=== PATIENT | female | born 1980 | race Caucasian/White ===

== ENCOUNTER → 2016-11-23 | Outpatient (CLI) | payer OTHER ==
[~2016-11-23] MED LIST: CHOL1000 PO; COEN1CAP37 PO; MISC1TAB PO; MULT-513 PO; OMEG10007 PO; SPIR25TA PO
[2016-11-23 14:23] LABS: BASO % 0.7 %; BASO ABS # 0.05 K/uL (0-0.2); COMPLETE YES; HEMATOCRIT 36.7 % (37-47); IG% 0.1 %; LYMPH ABS # 2.99 K/uL (1.2-3.4); MEAN CORPUSCULAR HEMOGLOBIN 31.1 pg (25-34); MEAN CORPUSCULAR HGB CONC 33.8 g/dl (32-36); MEAN PLATELET VOLUME 11.3 fL (7.4-10.4); MONO % 3.6 %; NEUT % 51.6 %; PLATELET COUNT 293 K/uL (130-400); RED BLOOD COUNT 3.99 M/uL (4.2-5.4); WHITE BLOOD COUNT 6.96 K/uL (4.8-10.8)
[2016-11-23 14:48] LABS: ALT/SGPT 17 U/L (12-78); BLOOD UREA NITROGEN 12 mg/dl (7-18); BUN/CREATININE RATIO 17.6 (10-20); CALCIUM 9.2 mg/dl (8.5-10.1); CARBON DIOXIDE 26 mmol/L (21-32); CHLORIDE 107 mmol/L (98-107); CHOLESTEROL 190 mg/dl (0-200); CREATININE 0.66 mg/dl (0.60-1.20); GLUCOSE 77 mg/dl (70-99); POTASSIUM 3.7 mmol/L (3.5-5.1); SODIUM 142 mmol/L (136-145)
[2016-11-23 14:57] LABS: ALB/GLOB RATIO 1.4 (0.9-2); ALKALINE PHOSPHATASE 97 U/L (45-117); AST/SGOT 12 U/L (15-37); CHOLESTEROL/HDL RATIO 2.2; HDL CHOLESTEROL 88 mg/dl; LDL CHOLESTEROL CALCULATED 94 mg/dl; TRIGLYCERIDES 39 mg/dl (0-150); VERY LOW DENSITY LIPOPROT CALC 8 mg/dl
== END | disposition home or self-care (01) ==
LOC: C.LAB1850 13:38
PROVIDERS: ATTEND Internal Medicine
DX: R20.2 Paresthesia of skin (principal); Z13.1 Encounter for screening for diabetes mellitus; Z13.220 Encounter for screening for lipoid disorders; Z13.29 Encounter for screening for other suspected endocrine disorder

== ENCOUNTER → 2017-01-03 | Outpatient (CLI) | payer OTHER ==
--- NOTE | 2017-01-03 21:19 | DIAGNOSTIC IMAGING REPORT ---
MRI OF THE LUMBAR SPINE WITHOUT IV CONTRAST CLINICAL HISTORY: Chronic low back pain. Bilateral lower extremity numbness and tingling. COMPARISON STUDY: No priors. TECHNIQUE: MRI of the lumbar spine is performed utilizing various T1 and T2-weighted sequences in the axial and sagittal planes. IV contrast was not administered for this examination. FINDINGS: Lumbar spine: Vertebral body height and alignment are maintained throughout the lumbar spine. There is straightening of the lumbar lordosis which appears slightly reversed centered at L3. The transverse and spinous processes appear intact. There is no evidence of spondylolysis. Marrow signal intensity is slightly heterogeneous. Hemangiomas are noted in the bodies of L1, L3, L4, and L5. No marrow edema is seen. Intervertebral discs: There is mild degenerative disc desiccation and loss of height at L5-S1. The remaining discs are normal in height and signal intensity. Spinal cord: The visualized spinal cord is normal in morphology and signal intensity. The conus medullaris terminates at the T12-L1 interspace. The nerve roots of the cauda equina are normal in morphology. L1-L2: Unremarkable. L2-L3: Unremarkable. L3-L4: Unremarkable. L4-L5: There is minimal disc bulge eccentric to the left. This may abut the transiting left L5 nerve root. The central canal and neural foramina are patent. Mild facet arthropathy is of no consequence. L5-S1: Mild facet arthropathy is of no consequence. The central canal and neural foramina are widely patent. A small synovial cyst projects posteriorly on the left and measures 5 mm. Sacrum: Partially imaged sacrum is normal in appearance. Soft tissues: The paraspinous soft tissues are normal in appearance. The partially imaged retroperitoneal structures are grossly normal, but incomplete assessed. IMPRESSION: 1. There is no disc herniation, central canal stenosis, or neural foraminal narrowing seen throughout the lumbar spine. 2. Mild degenerative change as above. 3. No destructive bony process is identified. Dictated: 01/03/2017 8:32 PM Transcribed: 01/03/2017 9:19 PM [email or web address]_[email or web address] Electronically signed by: Tony Varner M.D. 01/03/2017 9:20 PM Dictated Date/Time: 01/03/2017 8:32 PM
== END | disposition home or self-care (01) ==
LOC: C.MRI 19:30
PROVIDERS: ATTEND Internal Medicine
DX: R20.2 Paresthesia of skin (principal); M51.36 Other intervertebral disc degeneration, lumbar region; M54.16 Radiculopathy, lumbar region; R20.0 Anesthesia of skin

== ENCOUNTER 2017-04-12 16:30 | Emergency (ER) | payer BC, OTHER ==
[~2017-04-12] VITALS: Ht 170.2 cm; Wt 63.3 kg
[~2017-04-12 16:30] MED LIST changes: -CHOL1000 PO; -MULT-513 PO; -OMEG10007 PO; -SPIR25TA PO
[2017-04-12 16:32] VITALS: TEMP 36.6; Ht 170.2 cm; Wt 63.3 kg
[2017-04-12 17:01] VITALS: O2SAT 98
[2017-04-12] MEDS ORDERED: CHOL1000 PO (17:15)
[2017-04-12] MEDS ORDERED: SPIR25TA PO ×2 (17:15)
[2017-04-12 17:24] LABS: BASO % 0.6 %; BASO ABS # 0.04 K/uL (0-0.2); COMPLETE YES; EOS % 0.8 %; HEMATOCRIT 37.5 % (37-47); IG% 0.1 %; LYMPH % 32.6 %; LYMPH ABS # 2.32 K/uL (1.2-3.4); MEAN CELL VOLUME 90.6 fL (80-100); MEAN PLATELET VOLUME 10.5 fL (7.4-10.4); MONO % 7.3 %; NEUT % 58.6 %; PLATELET COUNT 300 K/uL (130-400); RED BLOOD COUNT 4.14 M/uL (4.2-5.4); WHITE BLOOD COUNT 7.11 K/uL (4.8-10.8)
--- NOTE | 2017-04-12 17:42 | DIAGNOSTIC IMAGING REPORT ---
CHEST ONE VIEW PORTABLE CLINICAL HISTORY: Sensation of foreign body in throat. COMPARISON STUDY: No previous studies for comparison. FINDINGS: The cardiac and mediastinal contours are normal. There is no evidence of focal pulmonary consolidation. There is no evidence of failure. No pleural effusions are visualized.[ There is no pneumothorax. There is no pneumomediastinum. IMPRESSION: No active disease in the chest. Electronically signed by: Alcon Ricci M.D. 04/12/2017 5:40 PM Dictated Date/Time: 04/12/2017 5:40 PM
[2017-04-12 17:44] LABS: BUN/CREATININE RATIO 25.3 (10-20); CALCIUM 8.7 mg/dl (8.5-10.1); CREATININE 0.71 mg/dl (0.60-1.20); POTASSIUM 3.6 mmol/L (3.5-5.1)
--- NOTE | 2017-04-12 19:11 | DIAGNOSTIC IMAGING REPORT ---
CT SOFT TISSUE NECK WITH CT DOSE: 223.64 mGy.cm CLINICAL HISTORY: Foreign body sensation in the back of the throat TECHNIQUE: Helical images were acquired during intravenous administration of 93 cc of Optiray 320. COMPARISON STUDY: None. FINDINGS: There are small biapical pulmonary blebs. No thyroid masses are visualized. No salivary gland masses are visualized. There are no pathologically enlarged cervical lymph nodes. No necrotic nodes are evident. There are no fluid collections suspicious for abscess. There is no evidence of airway compromise. No mucosal space masses are visualized The prevertebral soft tissues appear normal. No foreign bodies are visualized. If symptoms persist, ENT referral could be obtained in follow-up IMPRESSION: Normal study Electronically signed by: Alcon Ricci M.D. 04/12/2017 7:10 PM Dictated Date/Time: 04/12/2017 7:07 PM
[2017-04-12] MEDS ORDERED: OPTIRAY 320 IV PRN (19:15)
[2017-04-12 19:50] VITALS: BP 118/68; PULSE 65; O2SAT 96
[2017-04-12] MEDS ORDERED: OMEG10007 PO (19:57)
[2017-04-12] MEDS ORDERED: MULT-513 PO (19:57)
--- NOTE | 2017-04-13 01:21 | EMERGENCY ROOM VISIT NOTE ---
History Report prepared by Iván: Cipriano Rao Under the Supervision of: Dr. Omer Reyes D.O. First contact with patient: 16:52 Chief Complaint: FOOD BOLUS Stated Complaint: THROAT/FEELS LIKE SOMETHING IS STUCK History of Present Illness The patient is a 37 year old female who presents to the Emergency Room with complaints of a constant discomfort in back of her throat beginning three days ago. The patient states that it feels like she has something stuck in her throat. She notes that it seems like she is constantly chocking and gagging. The patient reports that she has not had these symptoms before, and she does not remember what she was doing when it began. She states that it was difficult to swallow cauliflower, yet she is fine eating chicken and dry foods. The patient notes that she had a sharp pain in her neck two weeks ago, but it was resolved. Pt denies headache, change in vision, fevers, chest pain, shortness of breath, nausea, vomiting, diarrhea, pain with urination, appetite change, and melena. She reports that she has never followed up with an HEENT doctor. The patient states that she has a history of tonsil stones and smoking. Source of History: patient Onset: 3 days ago Position: throat Timing: constant Associated Symptoms: No fevers, No headache, No chest pain, No SOB, No nausea, No vomiting, No melena, No diarrhea Note: Pt denies change in vision, pain with urination and appetite change. Review of Systems See HPI for pertinent positives & negatives. A total of 10 systems reviewed and were otherwise negative. Past Medical & Surgical Medical Problems: (1) Skin problem (2) Stomach problems Family History Diabetes mellitus FH: cancer Social History Smoking Status: Former Smoker Marital Status: single Current/Historical Medications Scheduled Cholecalciferol (Vitamin D3), 1,000 INTER.UNIT PO DAILY Fish Oil ([place]-3), 1 CAP PO DAILY Multivitamins/Minerals (Mvi With Minerals), 1 TAB PO DAILY Spironolactone (Aldactone), 50 MG PO QAM Spironolactone (Aldactone), 25 MG PO QPM Allergies Coded Allergies: Codeine (Verified Allergy, Severe, TURNS RED, GETS PAIN IN ABD., 05/03/16) Physical Exam Vital Signs Date Time Temp Pulse Resp B/P (MAP) Pulse Ox O2 Delivery O2 Flow Rate FiO2 6/9/17 19:50 65 16 118/68 96 04/12/17 19:07 65 18 114/71 98 Room Air 04/12/17 18:21 68 18 128/65 100 Room Air 04/12/17 17:01 98 Room Air 98 04/12/17 16:32 36.6 65 16 124/76 97 Room Air Physical Exam GENERAL: alert, well appearing, well nourished, no distress, non-toxic, sitting up in bed EYE EXAM: normal conjunctiva OROPHARYNX: no exudate, no erythema, lips, buccal mucosa, and tongue normal and mucous membranes are moist NECK: supple, no nuchal rigidity, no adenopathy, non-tender, no strider LUNGS: Clear to auscultation. Normal chest wall mechanics HEART: no murmurs, S1 normal and S2 normal ABDOMEN: abdomen soft, non-tender, normo-active bowel sounds, no masses, no rebound or guarding. BACK: Back is symmetrical on inspection and there is no deformity, no midline tenderness, no CVA tenderness. SKIN: no rashes and no bruising UPPER EXTREMITIES: upper extremities are grossly normal. LOWER EXTREMITIES: No pitting edema. NEURO EXAM: Normal sensorium, cranial nerves II-XII intact, normal speech, no weakness of arms, no weakness of legs. No drift. Finger to nose intact. Gross sensation intact. Medical Decision & Procedures ER Provider Diagnostic Interpretation: Radiology results as stated below per my review and the radiologist's interpretation: CT SOFT TISSUE NECK WITH CT DOSE: 223.64 mGy.cm CLINICAL HISTORY: Foreign body sensation in the back of the throat TECHNIQUE: Helical images were acquired during intravenous administration of 93 cc of Optiray 320. COMPARISON STUDY: None. FINDINGS: There are small biapical pulmonary blebs. No thyroid masses are visualized. No salivary gland masses are visualized. There are no pathologically enlarged cervical lymph nodes. No necrotic nodes are evident. There are no fluid collections suspicious for abscess. There is no evidence of airway compromise. No mucosal space masses are visualized The prevertebral soft tissues appear normal. No foreign bodies are visualized. If symptoms persist, ENT referral could be obtained in follow-up IMPRESSION: Normal study Electronically signed by: Alcon Ricci M.D. 04/12/2017 7:10 PM Dictated Date/Time: 04/12/2017 7:07 PM CHEST ONE VIEW PORTABLE CLINICAL HISTORY: Sensation of foreign body in throat. COMPARISON STUDY: No previous studies for comparison. FINDINGS: The cardiac and mediastinal contours are normal. There is no evidence of focal pulmonary consolidation. There is no evidence of failure. No pleural effusions are visualized.[ There is no pneumothorax. There is no pneumomediastinum. IMPRESSION: No active disease in the chest. Electronically signed by: Alcon Ricci M.D. 04/12/2017 5:40 PM Dictated Date/Time: 04/12/2017 5:40 PM Laboratory Results 04/12/17 17:14 Red Blood Count 4.14, Mean Corpuscular Volume 90.6, Mean Corpuscular Hemoglobin 29.0, Mean Corpuscular Hemoglobin Concent 32.0, Mean Platelet Volume 10.5, Neutrophils (%) (Auto) 58.6, Lymphocytes (%) (Auto) 32.6, Monocytes (%) (Auto) 7.3, Eosinophils (%) (Auto) 0.8, Basophils (%) (Auto) 0.6, Neutrophils # (Auto) 4.16, Lymphocytes # (Auto) 2.32, Monocytes # (Auto) 0.52, Eosinophils # (Auto) 0.06, Basophils # (Auto) 0.04 04/12/17 17:14 Test 04/12/17 17:14 White Blood Count 7.11 K/uL (4.8-10.8) Red Blood Count 4.14 M/uL (4.2-5.4) Hemoglobin 12.0 g/dL (12.0-16.0) Hematocrit 37.5 % (37-47) Mean Corpuscular Volume 90.6 fL (80-100) Mean Corpuscular Hemoglobin 29.0 pg (25-34) Mean Corpuscular Hemoglobin Concent 32.0 g/dl (32-36) Platelet Count 300 K/uL (130-400) Mean Platelet Volume 10.5 fL (7.4-10.4) Neutrophils (%) (Auto) 58.6 % Lymphocytes (%) (Auto) 32.6 % Monocytes (%) (Auto) 7.3 % Eosinophils (%) (Auto) 0.8 % Basophils (%) (Auto) 0.6 % Neutrophils # (Auto) 4.16 K/uL (1.4-6.5) Lymphocytes # (Auto) 2.32 K/uL (1.2-3.4) Monocytes # (Auto) 0.52 K/uL (0.11-0.59) Eosinophils # (Auto) 0.06 K/uL (0-0.5) Basophils # (Auto) 0.04 K/uL (0-0.2) RDW Standard Deviation 41.3 fL (36.4-46.3) RDW Coefficient of Variation 12.5 % (11.5-14.5) Immature Granulocyte % (Auto) 0.1 % Immature Granulocyte # (Auto) 0.01 K/uL (0.00-0.02) Anion Gap 10.0 mmol/L (3-11) Est Creatinine Clear Calc Drug Dose 107.6 ml/min Estimated GFR () 127.9 Estimated GFR (Non- 110.4 BUN/Creatinine Ratio 25.3 (10-20) Calcium Level 8.7 mg/dl (8.5-10.1) Laboratory results per my review. ED Course ED COURSE: Vital signs were reviewed and showed normal signs The patients medical record was reviewed The above diagnostic studies were performed and reviewed. ED treatments and interventions as stated above. 1654: The patient was evaluated in room B06. A complete history and physical examination was performed. 1737: Upon reevaluation, the patient is resting and in no distress .I discussed my findings with the patient and she understands and agrees with the treatment plan. She was discharged. Based on the patients age, coexisting illnesses, exam and lab findings the decision to treat as an outpatient was made. The patient remained stable while under my care. The patient appeared well at the time of discharge. Medical Decision Peritonsillar abscess, oropharyngeal abscess, foreign body, food bolus. Patient is a 37-year-old female who presents the ER for the feeling of something stuck at the back of her tonsil/back of her tongue. She was able to eat and drink without difficulty. She denies any trauma. She's never had any esophageal problems before the past. No trouble breathing. No fevers. Full range of motion of the neck. CBC and BMP were unremarkable. Chest x-ray was unremarkable. CT of the neck was negative. Patient was discharged follow-up with ENT as she is able to eat and drink without difficulty. Discussed with Pt concerning signs and symptoms to watch out for. Pt was instructed to follow up with their PCP and discussed with the patient their option to return to the ED at anytime for persistent or worsening symptoms. The appropriate anticipatory guidance and out-patient management, including indications for return to the emergency department, were explained at length to the patient and understood. Impression Primary Impression: Throat discomfort Scribe Attestation The scribe's documentation has been prepared under my direction and personally reviewed by me in its entirety. I confirm that the note above accurately reflects all work, treatment, procedures, and medical decision making performed by me. Departure Information Dispostion Home / Self-Care Referrals RV. Casas MD (PCP) Forms HOME CARE DOCUMENTATION FORM, IMPORTANT VISIT INFORMATION, WORK / SCHOOL INSTRUCTIONS Patient Instructions My [facility] Additional Instructions Please follow up with your primary care doctor with in the next 24 hours. Any worsening of your symptoms, please return to the ED immediately. His includes trouble breathing, trouble swallowing, fevers greater than 100.4, persistent vomiting, or any other concerning signs or symptoms from your standpoint. Please call ENT tomorrow to schedule appointment.
== END 2017-04-12 19:51 | disposition home or self-care (01) ==
LOC: C.EDB 16:31
DX: R09.89 Other specified symptoms and signs involving the circulatory and respiratory systems (principal); Z83.3 Family history of diabetes mellitus; Z80.9 Family history of malignant neoplasm, unspecified; Z87.891 Personal history of nicotine dependence; Z79.899 Other long term (current) drug therapy

== ENCOUNTER → 2017-11-07 | Outpatient (CLI) | payer OTHER ==
[~2017-11-07] MED LIST changes: +CHOL1000 PO; -COEN1CAP37 PO; -MISC1TAB PO; +MULT-513 PO; +OMEG10007 PO; +SPIR25TA PO
== END | disposition home or self-care (01) ==
LOC: C.LABSPEC 14:26
PROVIDERS: ATTEND Physician Assistant
DX: N89.8 Other specified noninflammatory disorders of vagina (principal)

== ENCOUNTER → 2018-01-23 | Outpatient (CLI) | payer OTHER | END | disposition home or self-care (01) | LOC: C.PAPS 08:09 | PROVIDERS: ATTEND Physician Assistant | DX: Z01.419 Encounter for gynecological examination (general) (routine) without abnormal findings (principal) ==